=== PATIENT | female | born 1990 | race Two or more races ===

== ENCOUNTER 2024-06-16 08:52 | Emergency (ER) | payer SELFPAY ==
[~2024-06-16] VITALS: Ht 180.3 cm; Wt 120.0 kg
[2024-06-16 10:08] LABS: Chloride 109 mmol/L (98-107); Potassium 3.5 mmol/L (3.5-5.1); Sodium 141 mmol/L (136-145)
[2024-06-16 10:09] LABS: Anion Gap 13 (5-15); Calcium 9.6 mg/dL (8.7-10.4); Carbon Dioxide 19 mmol/L (20-30)
[2024-06-16 10:14] LABS: BUN/Creatinine Ratio 20.3 (10.0-20.0); Blood Urea Nitrogen 12 mg/dL (9-23); Glucose 130 mg/dL (74-106)
[2024-06-16 10:17] LABS: Basophils # (auto) 0 10 ^3/uL (0-0.2); Basophils % (auto) 0.4 % (0.0-2.0); Eosinophils # (auto) 0.1 10 ^3/uL (0-0.8); Eosinophils % (auto) 0.7 % (0.0-7.0); Hematocrit 40.7 % (36.0-46.0); Hemoglobin 13.9 g/dL (12.2-16.2); Lymphocytes # (auto) 2.5 10 ^3/uL (0.4-5.4); Lymphocytes % (auto) 31.7 % (10.0-50.0); Mean Corpuscular Hemoglobin 29.4 pg (28.0-32.0); Mean Corpuscular Hgb Conc. 34.2 g/dL (32.0-36.0); Mean Corpuscular Volume 85.9 fL (80.0-100.0); Monocytes # (auto) 0.4 10 ^3/uL (0-1.3); Monocytes % (auto) 5.2 % (0.0-12.0); Neutrophils # (auto) 4.8 10 ^3/uL (1.6-8.6); Nucleated Red Blood Cells % 0.1 %; Platelet Count (auto) 276 10^3/uL (140-450); Red Blood Cells 4.74 10^6/uL (4.0-5.20); Red Cell Distribution Width 13.6 % (11.8-14.3); White Blood Cell 7.8 10^3/uL (4.4-10.8)
[2024-06-16] MEDS: LORazepam 0.5 MG TAB PO ONE (11:30)
[2024-06-16 11:36] VITALS: BP 129/85; PULSE 91; RESP 16; TEMP 99.7; O2SAT 100
== END 2024-06-16 13:54 | disposition home or self-care (01) ==
LOC: ER 08:52
DX: F41.9 Anxiety disorder, unspecified (principal); R10.9 Unspecified abdominal pain; R11.2 Nausea with vomiting, unspecified
CPT/HCPCS: 36415; 80048; 85025